=== PATIENT | female | born 1980 | race Caucasian/White ===

== ENCOUNTER 2018-09-27 11:18 | Observation (INO) | payer SELFPAY ==
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
[2018-09-27] MEDS ORDERED: NALOXONE HCL 0.4 MG/ML INJ IVP ONE (11:33)
--- NOTE | 2018-09-27 11:37 | CPEKG ---
Test Reason : OPEN Blood Pressure : / mmHG Vent. Rate : 077 BPM Atrial Rate : 077 BPM P-R Int : 181 ms QRS Dur : 073 ms QT Int : 394 ms P-R-T Axes : 086 069 081 degrees QTc Int : 446 ms Sinus rhythm Confirmed by Miller Nathan ([id number]) on 09/27/2018 11:37:06 AM Referred By: Miller Nathan Confirmed By:Miller Nathan
[2018-09-27] MEDS ORDERED: ONDANSETRON 4 MG/2 ML VIAL ONE (11:40)
[2018-09-27 11:42] LABS: PLATELET COUNT 189 10^3/uL (150-400)
[2018-09-27] MEDS ORDERED: ONDANSETRON 4 MG/2 ML VIAL IVP ONE (11:49)
[2018-09-27] MEDS ORDERED: LORazepam 2 MG/ML INJ IVP ONE (11:53)
[2018-09-27] MEDS ORDERED: LORazepam 2 MG/ML INJ ONE (11:54)
[2018-09-27] MEDS ORDERED: ONDANSETRON 4 MG/2 ML VIAL IVP PRN (14:16)
[2018-09-27] MEDS ORDERED: ONDANSETRON DISINTEGRATING 4 MG TAB PO PRN (14:16)
[2018-09-27] MEDS: NS 1,000 ML IV SCH ×2 (14:56→22:39)
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
[2018-09-28 05:39] LABS: PLATELET COUNT 148 10^3/uL (150-400)
[2018-09-28] MEDS: ACETAMINOPHEN 325 MG TAB PO PRN ×2 (06:00→10:46)
[2018-09-28] MEDS ORDERED: LEVOTHYROXINE 137 MCG TAB PO SCH (06:00)
[2018-09-28] MEDS: NS 1,000 ML IV SCH (06:04)
[2018-09-28] MEDS ORDERED: ENOXAPARIN 40 MG/0.4 ML SYR SC SCH (09:00)
--- NOTE | 2018-09-28 11:11 | ASMTLACE ---
LACE Length of stay for Answers: Less than 1 day current admission Acuity / Level of Answers: No Care: Did the patient have an inpatient admission? Comorbidities - select Answers: Other Notes: migraines, hypothyroid all that apply # of Emergency department Answers: 1-2 visits in the last 6 months Social determinants Answers: History of substance abuse (ETOH, street drugs, prescription drugs, etc.) Mental health diagnosis (anxiety, depression, pers onality disorders, etc.) Lack of community resources and/or lack of social support (no pcp, lives alone, transportation, shay d) Score: 12 Date Signed: 09/28/2018 11:10 AM Electronically Signed By:EMA Koehler
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
[2018-09-28 11:51] VITALS: BP 107/66
--- NOTE | 2018-09-28 14:33 | PDDCSUM ---
Discharge Summary Discharge Summary: Date of Admission: 09/27/2018 Date of Discharge: 09/28/2018 Procedures: CT Head Followup: PCP Hospital Course Problem List: 1. ETOH Intoxication with Obtundation - ETOH >500 on admission, Tox screen negative otherwise - Home medication list also with muscle relaxants and tramadol, possible contributing - Resolved overnight with supportive care 2. Ecchymoses over R Eye - CT Head without acute abnormality on admission 3. Pinpoint Pupils - UDS negative for opoids on admission however some opiates do not show up - S/p Narcan in field, pupils WNL this AM 4. Hypothyroidism - Continue home Levothyroxine Time spent on discharge was >35 minutes with >50% of time spent on patient education and counseling. Patient had discharge earlier than expected due to unanticipated rapid improvement in medical condition.
== END 2018-09-28 11:00 | disposition home or self-care (01) ==
LOC: EDUNIT# → F2N 14:41
PROVIDERS: ADMIT Internal Medicine; ATTEND Internal Medicine
DX: F10.129 Alcohol abuse with intoxication, unspecified (principal); R40.1 Stupor; S05.11XA Contusion of eyeball and orbital tissues, right eye, initial encounter; H57.03 Miosis; E03.9 Hypothyroidism, unspecified
CPT/HCPCS: 80305; 96374; 97161-GP; 97165-GO; G0378; G0480; J2060; J2405

== ENCOUNTER 2018-09-28 23:28 | Emergency (ER) | payer MEDICAID, OTHER ==
[2018-09-28] MEDS ORDERED: NS 1,000 ML IV ONE (23:35)
--- NOTE | 2018-09-28 23:39 | EDPHY ---
H & P Time Seen by Provider: 09/28/18 23:36 HPI/ROS: HPI CHIEF COMPLAINT: Alcohol Intoxication HISTORY OF PRESENT ILLNESS: 38-year-old female, was recently here in the emergency room yesterday admitted to the hospital for very high alcohol level close to 500 noted to have pinpoint pupils yesterday she was discharged, she presents back to the emergency room intoxicated with alcohol. She does have ecchymosis around her right eye however this is documented on previous ER visit and hospitalization. She had a negative CT scan of her head at that time. She arrives to the emergency room from a local hotel she is highly intoxicated with alcohol. She is somnolent. She presents to the emergency room by EMS from a local hotel. Past Medical History:Alcoholism, polysubstance abuse. Past Surgical History:No recent sx Social History: Alcoholism daily alcohol use. Family History: Noncontributory ROS REVIEW OF SYSTEMS: 10 Systems were reviewed and negative with the exception of the elements mentioned in the history of present illness. Exam Constitutional Intoxicated, triage nursing summary reviewed, vital signs reviewed, Sleepy, smells of alcohol Eyes normal conjunctivae and sclera, horizontal beating nystagmus consistent acute alcohol intoxication, otherwise pupils equal and react to light HENT ecchymosis around the right orbit, moist mucus membranes, no epistaxis, neck supple/ no meningismus, no raccoon eyes. Respiratory clear to auscultation bilaterally, normal breath sounds, no respiratory distress, no wheezing. Cardiovascular rate normal, regular rhythm, no murmur, no edema, distal pulses normal. Gastrointestinal soft, non-tender, no rebound, no guarding, normal bowel sounds, no distension, no pulsatile mass. Genitourinary no CVA tenderness. Musculoskeletal no midline vertebral tenderness, full range of motion, no calf swelling, no tenderness of extremities, no meningismus, good pulses, neurovascularly intact. Skin pink, warm, & dry, no rash, skin atraumatic. Neurologic sleepy, intoxicated with alcohol,, alert and oriented x 3, AAOx3, moves all 4 extremities equally, motor intact, sensory intact, CN II-XII intact , , normal vision, normal speech. Psychiatric normal mood/affect. Heme/Lymph/Immune no lymphadenopathy. Differential Diagnosis: Includes but is not limited to in a particular order acute alcohol intoxication, alcohol abuse, dehydration, electrolyte abnormality , nausea vomiting from acute alcohol intoxication Medical Decision Making: Plan for this patient personnel monitor, IV establishment gentle IV fluids, serum alcohol level, electrolytes and re- evaluate. Monitor for worsening of condition, monitor for sobriety. Re-evaluation: Serum alcohol level 359 at 12:55 a.m. Patient now been in the emergency room for close to 7 hr. She slept most of the evening. Vital signs are stable she has been resting comfortably. She is now sober ambulatory with a stable gait. She can be discharged to detox. Source: Patient, EMS - Medical/Surgical History Hx Asthma: No Hx Chronic Respiratory Disease: No Hx Diabetes: No Hx Cardiac Disease: No Hx Renal Disease: No Hx Cirrhosis: No Hx Alcoholism: No Hx HIV/AIDS: No Hx Splenectomy or Spleen Trauma: No Other PMH: ETOh, hypothyroid - Social History Smoking Status: Never smoked Constitutional: Initial Vital Signs Temperature (C) 37.2 C 09/28/18 23:51 Heart Rate 84 09/28/18 23:51 Respiratory Rate 18 09/28/18 23:51 Blood Pressure 105/79 09/28/18 23:51 O2 Sat (%) 92 09/28/18 23:51 O2 Delivery Mode Room Air O2 (L/minute) 2 Allergies/Adverse Reactions: amoxicillin Allergy (Verified 09/27/18 12:02) bee venom protein (honey bee) Allergy (Verified 09/27/18 17:17) cefepime Allergy (Verified 09/27/18 17:17) levofloxacin Allergy (Verified 09/27/18 17:17) Penicillins Allergy (Verified 09/27/18 12:02) Home Medications: Medication Instructions Recorded Cyclobenzaprine [Flexeril 10 MG 10 mg PO TID PRN 09/27/18 (*)] EPINEPHrine [Epipen 0.3 MG] 0.3 mg IM ONCE PRN 09/27/18 Ergotamine Tartrate/Caffeine 1 each PO Q6HRS PRN 09/27/18 [Cafergot Tablet] Levothyroxine [Synthroid 137 mcg 137 mcg PO DAILY06 09/27/18 (*)] Ondansetron HCl [Zofran] 4 - 8 mg PO DAILY PRN 09/27/18 busPIRone [Buspar (*)] 5 mg PO BID 09/27/18 traMADol [Ultram 50 mg (*)] 50 mg PO Q4-6PRN PRN 09/27/18 Acetaminophen [Tylenol 325mg (*)] 650 mg PO Q4HRS PRN tab 09/28/18 Medical Decision Making - Data Points Laboratory Results: Laboratory Results 09/28/18 23:30 09/28/18 23:30 Medications Given: Discontinued Medications Sodium Chloride (Ns) 1,000 mls @ 0 mls/hr IV EDNOW ONE; Wide Open PRN Reason: Protocol Stop: 09/28/18 23:36 Last Admin: 09/28/18 23:49 Dose: 1,000 mls Departure - Departure Disposition: Home, Routine, Self-Care Clinical Impression: Alcohol intoxication Qualifiers: Complication of substance-induced condition: uncomplicated Qualified Code(s): F10.920 - Alcohol use, unspecified with intoxication, uncomplicated Condition: Good Instructions: Alcohol Intoxication (ED), Abuse of Alcohol (ED) Referrals: Patient,NotPresent [Unknown] - As per Instructions
[2018-09-28 23:50] LABS: PLATELET COUNT 171 10^3/uL (150-400)
[2018-09-29 06:45] VITALS: BP 92/50
== END 2018-09-29 07:06 | disposition home or self-care (01) ==
LOC: EDUNIT#
DX: F10.920 Alcohol use, unspecified with intoxication, uncomplicated (principal)
CPT/HCPCS: G0480